=== PATIENT | female | born 1935 ===

== ENCOUNTER 2022-10-04 16:23 | Inpatient (IN) | payer MEDICARE, BC ==
[2022-10-04] MEDS ORDERED: Ondansetron ODT 4 MG TAB PO PRN (20:15)
[2022-10-04] MEDS: Calcium Carbonate 600 MG + Vit D TAB PO SCH (22:03)
[2022-10-04] MEDS: Apixaban 2.5 MG TAB PO SCH (22:03)
[2022-10-04] MEDS: Senokot 8.6 MG TAB PO SCH (22:03)
[2022-10-04] MEDS: Acetaminophen 500 MG TAB PO PRN (22:03)
[2022-10-04] MEDS: Flecainide 50 MG TAB PO SCH (22:03)
[2022-10-05 05:47] LABS: ALT (SGPT) 9 U/L (8-55); AST (SGOT) 32 U/L (5-34); Albumin 2.7 g/dL (3.4-4.8); Alkaline Phosphatase 81 U/L (40-110); Anion Gap 15 mmol/L (10-20); BUN (Urea Nitrogen) 24 mg/dL (9.8-20.1); Bilirubin, Total 0.9 mg/dL (0.2-1.2); Calc. Creatinine Clearance 40 mL/min (70-130); Calcium 8.4 mg/dL (7.8-10.44); Carbon Dioxide 20 mmol/L (23-31); Chloride 105 mmol/L (98-107); Estimated GFR 76; Globulin 2.7 g/dL (2.4-3.5); Glucose 95 mg/dL (83-110); Potassium 3.7 mmol/L (3.5-5.1); Protein, Total 5.4 g/dL (5.8-8.1); Sodium 136 mmol/L (136-145)
[2022-10-05 06:02] LABS: Anisocytosis SLIGHT = 6-15 cells (100X) (0-5/hpf); Band 4 % (5-11); Hemoglobin 9.9 g/dL (12.0-16.0); Hypochromia SLIGHT = 6-15 cells (100X) (0-5/hpf); Lymphocytes 15 % (21-51); MDiff Complete? YES; Mean Corpuscular HGB CONC 32.8 g/dL (32.0-36.0); Mean Corpuscular Hemoglobin 31.4 pg (27.0-31.0); Mean Corpuscular Volume 95.7 fl (78.0-98.0); Monocytes 3 % (0-10); Neutrophil 77 % (42-75); Platelet Count 248 10x3/uL (130-400); RBC Distribution Width 14.7 % (11.5-14.5); Red Blood Cell (RBC) Count 3.14 mill/uL (4.20-5.40); Target Cells SLIGHT = 2-5 cells (100X) (0-1/hpf); White Blood Cell (WBC) Count 6.6 10x3/uL (4.8-10.8)
[2022-10-05] MEDS: Calcium Carbonate 600 MG + Vit D TAB PO SCH ×2 (09:24→20:47)
[2022-10-05] MEDS: Flecainide 50 MG TAB PO SCH ×2 (09:24→20:45)
[2022-10-05] MEDS: Apixaban 2.5 MG TAB PO SCH ×2 (09:25→20:45)
[2022-10-05] MEDS: Acetaminophen 500 MG TAB PO PRN (09:28)
[2022-10-05] MEDS: Senokot 8.6 MG TAB PO SCH (20:47)
[2022-10-06] MEDS ORDERED: FLU VACC QS2022-23(65YR UP)/PF 240 MCG/0.7 ML SYRINGE IM ONE (09:00)
[2022-10-06] MEDS: Flecainide 50 MG TAB PO SCH ×2 (09:14→21:30)
[2022-10-06] MEDS: Calcium Carbonate 600 MG + Vit D TAB PO SCH ×2 (09:14→21:30)
[2022-10-06] MEDS: Apixaban 2.5 MG TAB PO SCH ×2 (09:14→21:30)
[2022-10-06] MEDS: Acetaminophen 500 MG TAB PO PRN (09:19)
[2022-10-06] MEDS: Senokot 8.6 MG TAB PO SCH (21:30)
[2022-10-07] MEDS: Apixaban 2.5 MG TAB PO SCH ×2 (10:17→21:11)
[2022-10-07] MEDS: Flecainide 50 MG TAB PO SCH ×2 (10:17→21:11)
[2022-10-07] MEDS: Calcium Carbonate 600 MG + Vit D TAB PO SCH ×2 (10:17→21:11)
[2022-10-07] MEDS: Acetaminophen 500 MG TAB PO PRN ×2 (10:18→23:34)
[2022-10-07] MEDS: Senokot 8.6 MG TAB PO SCH (21:11)
[2022-10-08 04:44] LABS: Bilirubin Small (Negative); Blood, Urine Small (Negative); Clarity Clear (Clear); Glucose, Urine (Dipstick) Negative (Negative); Ketone, Urine Trace mg/dL (Negative); Leukocyte Negative (Negative); Nitrite Negative (Negative); Protein, Urine (Dipstick) 30 mg/dL (Neg-Trace); Specific Gravity, Urine 1.025 (1.005-1.030)
[2022-10-08 04:49] LABS: Bacteria/HPF None Seen HPF (None Seen); Transitional Epithelial 0-3 HPF (None Seen); Yeast-Budding 2+ HPF (None Seen)
[2022-10-08 04:50] LABS: Yeast-Hyphae 1+ HPF (None Seen)
[2022-10-08] MEDS: Flecainide 50 MG TAB PO SCH ×2 (08:58→21:36)
[2022-10-08] MEDS: Calcium Carbonate 600 MG + Vit D TAB PO SCH ×2 (08:58→21:36)
[2022-10-08] MEDS: Apixaban 2.5 MG TAB PO SCH ×2 (08:58→21:36)
[2022-10-08] MEDS: Senokot 8.6 MG TAB PO SCH (21:36)
[2022-10-08] MEDS: Acetaminophen 500 MG TAB PO PRN (21:36)
[2022-10-09] MEDS: Acetaminophen 500 MG TAB PO PRN ×2 (08:02→21:36)
[2022-10-09] MEDS: Flecainide 50 MG TAB PO SCH ×2 (08:04→21:36)
[2022-10-09] MEDS: Calcium Carbonate 600 MG + Vit D TAB PO SCH ×2 (08:04→21:35)
[2022-10-09] MEDS: Apixaban 2.5 MG TAB PO SCH ×2 (08:04→21:36)
[2022-10-09] MEDS ORDERED: Bisacodyl 10 MG SUPP PR PRN (14:26)
[2022-10-09] MEDS: Senokot 8.6 MG TAB PO SCH (21:36)
[2022-10-10] MEDS: Flecainide 50 MG TAB PO SCH ×2 (08:58→20:50)
[2022-10-10] MEDS: Calcium Carbonate 600 MG + Vit D TAB PO SCH ×2 (08:58→20:47)
[2022-10-10] MEDS: Apixaban 2.5 MG TAB PO SCH ×2 (08:58→20:47)
[2022-10-10] MEDS: Senokot 8.6 MG TAB PO SCH (20:47)
[2022-10-11] MEDS: Apixaban 2.5 MG TAB PO SCH ×2 (07:59→21:16)
[2022-10-11] MEDS: Calcium Carbonate 600 MG + Vit D TAB PO SCH ×2 (07:59→21:16)
[2022-10-11] MEDS: Flecainide 50 MG TAB PO SCH ×2 (07:59→21:16)
[2022-10-11] MEDS: Acetaminophen 500 MG TAB PO PRN (08:00)
[2022-10-11] MEDS: Senokot 8.6 MG TAB PO SCH (21:16)
[2022-10-12 05:28] LABS: Hemoglobin 9.9 g/dL (12.0-16.0); Platelet Count 319 10x3/uL (130-400)
[2022-10-12] MEDS: Apixaban 2.5 MG TAB PO SCH ×2 (08:57→21:00)
[2022-10-12] MEDS: Flecainide 50 MG TAB PO SCH ×2 (08:57→21:00)
[2022-10-12] MEDS: Ferrous Sulfate 325 MG TAB PO SCH ×2 (08:57→17:13)
[2022-10-12] MEDS: Calcium Carbonate 600 MG + Vit D TAB PO SCH ×2 (08:57→21:00)
[2022-10-12] MEDS: Senokot 8.6 MG TAB PO SCH (21:00)
[2022-10-12] MEDS: Mirtazapine 15 MG TAB PO SCH (21:00)
[2022-10-13] MEDS: Ferrous Sulfate 325 MG TAB PO SCH ×2 (08:14→17:10)
[2022-10-13] MEDS: Calcium Carbonate 600 MG + Vit D TAB PO SCH ×2 (08:14→20:46)
[2022-10-13] MEDS: Flecainide 50 MG TAB PO SCH ×2 (08:14→20:47)
[2022-10-13] MEDS: Apixaban 2.5 MG TAB PO SCH ×2 (08:14→20:46)
[2022-10-13] MEDS: Mirtazapine 15 MG TAB PO SCH (20:46)
[2022-10-13] MEDS: Senokot 8.6 MG TAB PO SCH (20:47)
[2022-10-14] MEDS: Calcium Carbonate 600 MG + Vit D TAB PO SCH ×2 (07:58→21:10)
[2022-10-14] MEDS: Ferrous Sulfate 325 MG TAB PO SCH ×2 (07:58→17:16)
[2022-10-14] MEDS: Flecainide 50 MG TAB PO SCH ×2 (07:58→21:10)
[2022-10-14] MEDS: Apixaban 2.5 MG TAB PO SCH ×2 (07:59→21:10)
[2022-10-14] MEDS: Mirtazapine 15 MG TAB PO SCH (21:10)
[2022-10-14] MEDS: Senokot 8.6 MG TAB PO SCH (21:10)
[2022-10-15] MEDS: Apixaban 2.5 MG TAB PO SCH ×2 (08:10→20:48)
[2022-10-15] MEDS: Ferrous Sulfate 325 MG TAB PO SCH ×2 (08:10→17:49)
[2022-10-15] MEDS: Flecainide 50 MG TAB PO SCH ×2 (08:10→20:48)
[2022-10-15] MEDS: Calcium Carbonate 600 MG + Vit D TAB PO SCH ×2 (08:10→20:48)
[2022-10-15] MEDS: Senokot 8.6 MG TAB PO SCH (20:47)
[2022-10-15] MEDS: Mirtazapine 15 MG TAB PO SCH (20:47)
[2022-10-16] MEDS: Apixaban 2.5 MG TAB PO SCH ×2 (08:19→20:28)
[2022-10-16] MEDS: Flecainide 50 MG TAB PO SCH ×2 (08:19→20:29)
[2022-10-16] MEDS: Ferrous Sulfate 325 MG TAB PO SCH ×2 (08:19→17:20)
[2022-10-16] MEDS: Calcium Carbonate 600 MG + Vit D TAB PO SCH ×2 (08:19→20:29)
[2022-10-16] MEDS: Mirtazapine 15 MG TAB PO SCH (20:28)
[2022-10-16] MEDS: Lantiseptic Ointment 130 GM JAR TOP PRN (20:29)
[2022-10-16] MEDS: Senokot 8.6 MG TAB PO SCH (20:29)
[2022-10-17] MEDS: Apixaban 2.5 MG TAB PO SCH ×2 (09:40→20:25)
[2022-10-17] MEDS: Ferrous Sulfate 325 MG TAB PO SCH ×2 (09:40→16:58)
[2022-10-17] MEDS: Calcium Carbonate 600 MG + Vit D TAB PO SCH ×2 (09:40→20:25)
[2022-10-17] MEDS: Flecainide 50 MG TAB PO SCH ×2 (09:40→20:25)
[2022-10-17] MEDS: Senokot 8.6 MG TAB PO SCH (20:25)
[2022-10-17] MEDS: Mirtazapine 15 MG TAB PO SCH (20:25)
[2022-10-18] MEDS: Flecainide 50 MG TAB PO SCH ×2 (08:12→21:29)
[2022-10-18] MEDS: Apixaban 2.5 MG TAB PO SCH ×2 (08:12→21:29)
[2022-10-18] MEDS: Ferrous Sulfate 325 MG TAB PO SCH ×2 (08:13→17:39)
[2022-10-18] MEDS: Calcium Carbonate 600 MG + Vit D TAB PO SCH ×2 (08:20→21:29)
[2022-10-18] MEDS: Senokot 8.6 MG TAB PO SCH (21:29)
[2022-10-18] MEDS: Mirtazapine 15 MG TAB PO SCH (21:29)
[2022-10-19] MEDS: Calcium Carbonate 600 MG + Vit D TAB PO SCH ×3 (08:09→22:14)
[2022-10-19] MEDS: Flecainide 50 MG TAB PO SCH ×2 (08:13→21:30)
[2022-10-19] MEDS: Apixaban 2.5 MG TAB PO SCH ×2 (08:13→21:30)
[2022-10-19] MEDS: Ferrous Sulfate 325 MG TAB PO SCH ×2 (08:13→16:52)
[2022-10-19] MEDS: Senokot 8.6 MG TAB PO SCH (21:30)
[2022-10-19] MEDS: Mirtazapine 15 MG TAB PO SCH (21:30)
[2022-10-20 05:30] LABS: Hemoglobin 10.6 g/dL (12.0-16.0); Platelet Count 709 10x3/uL (130-400)
[2022-10-20] MEDS: Flecainide 50 MG TAB PO SCH ×2 (09:05→21:16)
[2022-10-20] MEDS: Apixaban 2.5 MG TAB PO SCH ×2 (09:05→21:15)
[2022-10-20] MEDS: Ferrous Sulfate 325 MG TAB PO SCH ×2 (09:05→18:08)
[2022-10-20] MEDS: Calcium Carbonate 600 MG + Vit D TAB PO SCH ×2 (09:06→21:15)
[2022-10-20] MEDS: Senokot 8.6 MG TAB PO SCH (21:15)
[2022-10-20] MEDS: Mirtazapine 15 MG TAB PO SCH (21:15)
[2022-10-21] MEDS: Calcium Carbonate 600 MG + Vit D TAB PO SCH ×2 (08:33→21:50)
[2022-10-21] MEDS: Apixaban 2.5 MG TAB PO SCH ×2 (08:33→21:44)
[2022-10-21] MEDS: Flecainide 50 MG TAB PO SCH ×2 (08:33→21:44)
[2022-10-21] MEDS: Ferrous Sulfate 325 MG TAB PO SCH ×2 (08:33→17:01)
[2022-10-21] MEDS: Senokot 8.6 MG TAB PO SCH (21:44)
[2022-10-21] MEDS: Mirtazapine 15 MG TAB PO SCH (21:44)
[2022-10-22] MEDS: Apixaban 2.5 MG TAB PO SCH ×2 (10:10→20:44)
[2022-10-22] MEDS: Ferrous Sulfate 325 MG TAB PO SCH ×2 (10:10→17:41)
[2022-10-22] MEDS: Flecainide 50 MG TAB PO SCH ×2 (10:10→20:44)
[2022-10-22] MEDS: Calcium Carbonate 600 MG + Vit D TAB PO SCH (10:10)
[2022-10-22] MEDS: Cholecalciferol 1,000 UNITS (25 MCG) TAB PO SCH (20:44)
[2022-10-22] MEDS: Senokot 8.6 MG TAB PO SCH (20:44)
[2022-10-22] MEDS: Calcium Carbonate 500 MG ChewTAB PO SCH ×2 (20:45→20:50)
[2022-10-23] MEDS: Ferrous Sulfate 325 MG TAB PO SCH ×2 (08:50→17:07)
[2022-10-23] MEDS: Cholecalciferol 1,000 UNITS (25 MCG) TAB PO SCH ×2 (08:50→20:35)
[2022-10-23] MEDS: Calcium Carbonate 500 MG ChewTAB PO SCH ×2 (08:50→20:35)
[2022-10-23] MEDS: Flecainide 50 MG TAB PO SCH ×2 (08:50→20:35)
[2022-10-23] MEDS: Apixaban 2.5 MG TAB PO SCH ×2 (08:50→20:35)
[2022-10-23] MEDS: Senokot 8.6 MG TAB PO SCH (20:35)
[2022-10-24] MEDS: Apixaban 2.5 MG TAB PO SCH ×2 (08:21→20:12)
[2022-10-24] MEDS: Calcium Carbonate 500 MG ChewTAB PO SCH ×2 (08:21→20:12)
[2022-10-24] MEDS: Ferrous Sulfate 325 MG TAB PO SCH ×2 (08:21→16:49)
[2022-10-24] MEDS: Flecainide 50 MG TAB PO SCH ×2 (08:21→20:12)
[2022-10-24] MEDS: Cholecalciferol 1,000 UNITS (25 MCG) TAB PO SCH ×2 (08:21→20:12)
[2022-10-24] MEDS: Senokot 8.6 MG TAB PO SCH (20:12)
[2022-10-25] MEDS: Apixaban 2.5 MG TAB PO SCH ×2 (08:02→20:59)
[2022-10-25] MEDS: Flecainide 50 MG TAB PO SCH ×2 (08:02→20:59)
[2022-10-25] MEDS: Cholecalciferol 1,000 UNITS (25 MCG) TAB PO SCH ×2 (08:02→20:59)
[2022-10-25] MEDS: Ferrous Sulfate 325 MG TAB PO SCH ×2 (08:02→17:13)
[2022-10-25] MEDS: Calcium Carbonate 500 MG ChewTAB PO SCH ×2 (08:03→20:59)
[2022-10-25] MEDS: Senokot 8.6 MG TAB PO SCH (20:59)
[2022-10-25] MEDS: Lantiseptic Ointment 130 GM JAR TOP PRN (21:05)
[2022-10-26] MEDS ORDERED: Bisacodyl 10 MG SUPP PR SCH (08:15)
[2022-10-26] MEDS: Lantiseptic Ointment 130 GM JAR TOP PRN (08:23)
[2022-10-26] MEDS: Apixaban 2.5 MG TAB PO SCH ×2 (08:23→21:18)
[2022-10-26] MEDS: Cholecalciferol 1,000 UNITS (25 MCG) TAB PO SCH ×2 (08:23→21:18)
[2022-10-26] MEDS: Ferrous Sulfate 325 MG TAB PO SCH ×2 (08:23→17:07)
[2022-10-26] MEDS: Flecainide 50 MG TAB PO SCH ×2 (08:23→21:18)
[2022-10-26] MEDS: Calcium Carbonate 500 MG ChewTAB PO SCH ×2 (08:23→21:18)
[2022-10-26] MEDS ORDERED: Mineral Oil ENEMA PR SCH (14:00)
[2022-10-26] MEDS ORDERED: Mineral Oil ENEMA ONE (14:24)
[2022-10-26] MEDS: Senokot 8.6 MG TAB PO SCH (21:18)
[2022-10-27] MEDS: Cholecalciferol 1,000 UNITS (25 MCG) TAB PO SCH ×2 (08:28→21:42)
[2022-10-27] MEDS: Apixaban 2.5 MG TAB PO SCH ×2 (08:28→21:42)
[2022-10-27] MEDS: Ferrous Sulfate 325 MG TAB PO SCH ×2 (08:28→17:03)
[2022-10-27] MEDS: Lantiseptic Ointment 130 GM JAR TOP PRN ×2 (08:28→21:50)
[2022-10-27] MEDS: Flecainide 50 MG TAB PO SCH ×2 (08:28→21:42)
[2022-10-27] MEDS: Calcium Carbonate 500 MG ChewTAB PO SCH ×2 (08:28→21:42)
[2022-10-27] MEDS ORDERED: Mineral Oil ENEMA PR SCH (15:00)
[2022-10-27] MEDS ORDERED: Mineral Oil ENEMA ONE (15:02)
[2022-10-27] MEDS: Senokot 8.6 MG TAB PO SCH (21:42)
[2022-10-28] MEDS: Lantiseptic Ointment 130 GM JAR TOP PRN (08:31)
[2022-10-28] MEDS: Calcium Carbonate 500 MG ChewTAB PO SCH ×2 (08:32→20:45)
[2022-10-28] MEDS: Ferrous Sulfate 325 MG TAB PO SCH ×2 (08:32→16:26)
[2022-10-28] MEDS: Flecainide 50 MG TAB PO SCH ×2 (08:32→20:45)
[2022-10-28] MEDS: Cholecalciferol 1,000 UNITS (25 MCG) TAB PO SCH ×2 (08:32→20:45)
[2022-10-28] MEDS: Senokot 8.6 MG TAB PO SCH ×2 (08:32→20:45)
[2022-10-28] MEDS: Apixaban 2.5 MG TAB PO SCH ×2 (08:32→20:45)
[2022-10-29] MEDS: Ferrous Sulfate 325 MG TAB PO SCH ×2 (08:09→17:08)
[2022-10-29] MEDS: Cholecalciferol 1,000 UNITS (25 MCG) TAB PO SCH ×2 (08:09→20:02)
[2022-10-29] MEDS: Senokot 8.6 MG TAB PO SCH ×2 (08:09→20:02)
[2022-10-29] MEDS: Apixaban 2.5 MG TAB PO SCH ×2 (08:09→20:02)
[2022-10-29] MEDS: Flecainide 50 MG TAB PO SCH ×2 (08:09→20:02)
[2022-10-29] MEDS: Calcium Carbonate 500 MG ChewTAB PO SCH ×2 (08:11→20:02)
[2022-10-30 05:24] LABS: Hemoglobin 10.5 g/dL (12.0-16.0); Platelet Count 268 10x3/uL (130-400)
[2022-10-30] MEDS: Flecainide 50 MG TAB PO SCH ×2 (08:54→21:23)
[2022-10-30] MEDS: Ferrous Sulfate 325 MG TAB PO SCH ×2 (08:54→17:34)
[2022-10-30] MEDS: Cholecalciferol 1,000 UNITS (25 MCG) TAB PO SCH ×2 (08:54→21:23)
[2022-10-30] MEDS: Senokot 8.6 MG TAB PO SCH ×2 (08:54→21:23)
[2022-10-30] MEDS: Apixaban 2.5 MG TAB PO SCH ×2 (08:54→21:23)
[2022-10-30] MEDS: Calcium Carbonate 500 MG ChewTAB PO SCH ×2 (08:54→21:23)
[2022-10-31] MEDS: Apixaban 2.5 MG TAB PO SCH ×2 (08:07→22:21)
[2022-10-31] MEDS: Calcium Carbonate 500 MG ChewTAB PO SCH ×2 (08:07→22:21)
[2022-10-31] MEDS: Ferrous Sulfate 325 MG TAB PO SCH ×2 (08:07→17:06)
[2022-10-31] MEDS: Flecainide 50 MG TAB PO SCH ×2 (08:08→22:21)
[2022-10-31] MEDS: Cholecalciferol 1,000 UNITS (25 MCG) TAB PO SCH ×2 (08:08→22:21)
[2022-10-31] MEDS: Senokot 8.6 MG TAB PO SCH ×2 (08:08→22:21)
[2022-11-01] MEDS: Ferrous Sulfate 325 MG TAB PO SCH ×2 (08:17→17:35)
[2022-11-01] MEDS: Apixaban 2.5 MG TAB PO SCH ×2 (08:18→20:43)
[2022-11-01] MEDS: Cholecalciferol 1,000 UNITS (25 MCG) TAB PO SCH ×2 (08:18→20:43)
[2022-11-01] MEDS: Calcium Carbonate 500 MG ChewTAB PO SCH ×2 (08:18→20:43)
[2022-11-01] MEDS: Senokot 8.6 MG TAB PO SCH ×2 (08:18→20:43)
[2022-11-01] MEDS: Flecainide 50 MG TAB PO SCH (20:43)
[2022-11-01] MEDS: Lantiseptic Ointment 130 GM JAR TOP PRN (20:49)
[2022-11-01] MEDS: Polyethylene Glycol 3350 17 GM Packet PO SCH (22:30)
[2022-11-02] MEDS: Flecainide 50 MG TAB PO SCH ×2 (09:01→20:30)
[2022-11-02] MEDS: Senokot 8.6 MG TAB PO SCH ×2 (09:01→20:30)
[2022-11-02] MEDS: Ferrous Sulfate 325 MG TAB PO SCH ×2 (09:01→17:04)
[2022-11-02] MEDS: Calcium Carbonate 500 MG ChewTAB PO SCH ×2 (09:01→20:29)
[2022-11-02] MEDS: Cholecalciferol 1,000 UNITS (25 MCG) TAB PO SCH ×2 (09:01→20:30)
[2022-11-02] MEDS: Apixaban 2.5 MG TAB PO SCH ×2 (09:01→20:30)
[2022-11-02 11:47] VITALS: BMI 15.3
[2022-11-02] MEDS: Polyethylene Glycol 3350 17 GM Packet PO SCH (20:29)
[2022-11-03] MEDS: Calcium Carbonate 500 MG ChewTAB PO SCH ×2 (08:21→20:08)
[2022-11-03] MEDS: Senokot 8.6 MG TAB PO SCH ×2 (08:21→20:09)
[2022-11-03] MEDS: Flecainide 50 MG TAB PO SCH ×2 (08:21→20:09)
[2022-11-03] MEDS: Ferrous Sulfate 325 MG TAB PO SCH ×2 (08:21→17:17)
[2022-11-03] MEDS: Apixaban 2.5 MG TAB PO SCH ×2 (08:22→20:09)
[2022-11-03] MEDS: Cholecalciferol 1,000 UNITS (25 MCG) TAB PO SCH ×2 (08:22→20:09)
[2022-11-03] MEDS: Polyethylene Glycol 3350 17 GM Packet PO SCH (20:08)
[2022-11-04] MEDS: Flecainide 50 MG TAB PO SCH ×2 (08:44→20:12)
[2022-11-04] MEDS: Cholecalciferol 1,000 UNITS (25 MCG) TAB PO SCH ×2 (08:44→20:13)
[2022-11-04] MEDS: Apixaban 2.5 MG TAB PO SCH ×2 (08:44→20:13)
[2022-11-04] MEDS: Ferrous Sulfate 325 MG TAB PO SCH ×2 (08:44→16:46)
[2022-11-04] MEDS: Calcium Carbonate 500 MG ChewTAB PO SCH ×2 (08:44→20:13)
[2022-11-04] MEDS: Senokot 8.6 MG TAB PO SCH ×2 (08:44→20:13)
[2022-11-04] MEDS: Polyethylene Glycol 3350 17 GM Packet PO SCH (20:12)
[2022-11-05 08:29] VITALS: BP 118/74; TEMP 98.9
[2022-11-05] MEDS: Flecainide 50 MG TAB PO SCH (08:56)
[2022-11-05] MEDS: Cholecalciferol 1,000 UNITS (25 MCG) TAB PO SCH (08:56)
[2022-11-05] MEDS: Calcium Carbonate 500 MG ChewTAB PO SCH (08:57)
[2022-11-05] MEDS: Apixaban 2.5 MG TAB PO SCH (08:57)
[2022-11-05] MEDS: Ferrous Sulfate 325 MG TAB PO SCH (08:57)
[2022-11-05] MEDS: Senokot 8.6 MG TAB PO SCH (08:57)
== END 2022-11-05 14:27 | disposition home health service (06) | DRG 559 ==
LOC: MADMS 18:14
PROVIDERS: ADMIT Family Medicine; ATTEND Family Medicine
PROC: 8E0ZXY6 Isolation (ICD-10-PCS; principal; 2022-10-06)
DX: S72.002D Fracture of unspecified part of neck of left femur, subsequent encounter for closed fracture with routine healing (principal); U07.1 COVID-19; I48.92 Unspecified atrial flutter; I48.0 Paroxysmal atrial fibrillation; W19.XXXD Unspecified fall, subsequent encounter; I10 Essential (primary) hypertension; E78.5 Hyperlipidemia, unspecified; R13.10 Dysphagia, unspecified; R63.0 Anorexia; D64.9 Anemia, unspecified; K21.9 Gastro-esophageal reflux disease without esophagitis; F03.90 Unspecified dementia, unspecified severity, without behavioral disturbance, psychotic disturbance, mood disturbance, and anxiety; Z66 Do not resuscitate; K59.00 Constipation, unspecified; D75.839 Thrombocytosis, unspecified; Z90.49 Acquired absence of other specified parts of digestive tract; Z88.8 Allergy status to other drugs, medicaments and biological substances; Z86.73 Personal history of transient ischemic attack (TIA), and cerebral infarction without residual deficits; Z95.0 Presence of cardiac pacemaker; Z79.01 Long term (current) use of anticoagulants
CPT/HCPCS: 36415; 36416; 80053; 81003; 81015; 85014; 85018; 85025; 85049; 87086; U0003; U0005